=== PATIENT | male | born 1965 | race Caucasian/White ===

== ENCOUNTER 2016-06-04 07:17 | Day surgery (SDC) | payer MEDICAID ==
[2016-06-04] MEDS ORDERED: MIDAZOLAM 2 MG/2 ML VIAL ONE (08:59)
[2016-06-04] MEDS ORDERED: PROPOFOL/EMULSION 500 MG/50 ML BOTTLE IV ONE (09:02)
[2016-06-04] MEDS ORDERED: LIDOCAINE 2% 100 MG/5 ML SYR ONE (09:23)
--- NOTE | 2016-06-04 09:56 | GPN ---
[f rep st] PROCEDURE NOTE PREPROCEDURE DIAGNOSIS: Need for screening colonoscopy. POSTPROCEDURE DIAGNOSIS: Colonoscopy with snare polypectomy of small ascending colon polyp. PROCEDURE: Colonoscopy with snare. MEDICATIONS: Monitored anesthesia care. INDICATIONS: The patient is a 50-year-old gentleman who is followed in our clinic. He has a histor y of eosinophilic esophagitis. He is here for screening colonoscopy. The risks and benefits of the procedure were discussed with the patient. Consent obtained. Risks include, but not limited to, b leeding, perforation, and sedation. The patient is ASA class 2. DESCRIPTION OF PROCEDURE: The pediatric colonoscope was advanced into the terminal ileum, which florentino eared normal. The appendiceal orifice, cecum, IC valve appeared normal. There was a 3 mm polyp in the ascending colon, which was removed using a cold snare polypectomy technique. The polyp is retri eved for pathology. The hepatic flexure, transverse colon, splenic flexure, descending colon, sigmo id colon, and rectum were normal. Retroflexed views in the rectum were normal. IMPRESSION: Small ascending colon polyp removed with snare polypectomy and retrieved for pathology. RECOMMENDATIONS: 1. Advance diet as tolerated. 2. Continue present medications. 3. Repeat colonoscopy to be determined after pathology returns. If the polyp is found to be an juan carlos nomatous polyp, I recommend repeating colonoscopy in 5 years. 4. Pathology will be available within 10 days. We will call the patient with the results. Thank you for allowing me to participate in the care of your patient. Please do not hesitate to jayant rubin with questions. /[id number]/[id number]
== END 2016-06-04 10:30 | disposition home or self-care (01) ==
LOC: FSGY 07:17
PROVIDERS: ATTEND Internal Medicine Gastroenterology
PROC: 0DBK8ZX Excision of Ascending Colon, Via Natural or Artificial Opening Endoscopic, Diagnostic (ICD-10-PCS; principal; 2016-06-04 08:45)
DX: Z12.11 Encounter for screening for malignant neoplasm of colon (principal); D12.2 Benign neoplasm of ascending colon
CPT/HCPCS: J2001; J2250; J2704